=== PATIENT | female | born 1995 | race Caucasian/White ===

== ENCOUNTER 2017-09-17 20:20 | Emergency (ER) | payer MEDICAID | END 2017-09-17 20:44 | disposition left against medical advice (07) | LOC: D.ER 20:20 | DX: F41.9 Anxiety disorder, unspecified (principal) ==

== ENCOUNTER 2017-09-17 20:54 | Emergency (ER) | payer MEDICAID ==
[~2017-09-17] VITALS: Ht 160 cm; Wt 52.2 kg
[2017-09-17 21:34] VITALS: BP 125/81; Ht 160 cm; Wt 52.2 kg
== END 2017-09-17 22:20 | disposition left against medical advice (07) ==
LOC: D.ER 20:54
DX: F41.9 Anxiety disorder, unspecified (principal)